=== PATIENT | female | born 1995 | race African-American/Black ===

== ENCOUNTER 2018-02-09 19:52 | Emergency (ER) | payer SELFPAY ==
[~2018-02-09] VITALS: Ht 160 cm; Wt 56.7 kg
[2018-02-09 20:22] VITALS: BP 117/84
== END 2018-02-09 22:08 | disposition home or self-care (01) ==
LOC: ER 19:59
DX: R51 Headache (principal); M54.2 Cervicalgia; M25.511 Pain in right shoulder; V43.52XA Car driver injured in collision with other type car in traffic accident, initial encounter; Y93.89 Activity, other specified; Y92.89 Other specified places as the place of occurrence of the external cause; Y99.8 Other external cause status
CPT/HCPCS: 99283; A4606; Z7610